=== PATIENT | male | born 1965 | race African-American/Black ===

== ENCOUNTER 2018-08-20 19:29 | Emergency (ER) | payer MEDICAID, OTHER ==
[~2018-08-20] VITALS: Ht 177.8 cm; Wt 69.9 kg
[~2018-08-20 19:29] MED LIST: ASPI81CH43; ENAL20TA70; INSLANTI; METF-370; NIFE60TA53; SIMV-13
[2018-08-20] MEDS ORDERED: cloNIDine HCL 0.1 MG TAB PO ONE (19:45)
[2018-08-20 21:32] LABS: Basophils # (auto) 0 uL; Basophils % (auto) 0.4 % (0.0-2.0); Eosinophils # (auto) 0.1 uL; Eosinophils % (auto) 1.8 % (0.0-7.0); Hematocrit 39.6 % (41.0-53.0); Hemoglobin 13.2 g/dL (13.5-17.5); Lymphocytes # (auto) 2.3 uL; Lymphocytes % (auto) 39.8 % (10.0-50.0); Mean Corpuscular Hemoglobin 28.2 pg (28.0-32.0); Mean Corpuscular Hgb Conc. 33.2 g/dL (32.0-36.0); Mean Corpuscular Volume 84.7 fL (80.0-100.0); Monocytes # (auto) 0.7 uL; Monocytes % (auto) 11.2 % (0.0-12.0); Neutrophils # (auto) 2.8 uL; Neutrophils % (auto) 46.8 % (37.0-80.0); Nucleated Red Blood Cells % 0.3 %; Platelet Count (auto) 252 10^3/uL (140-450); Red Blood Cells 4.68 10^6/uL (4.5-5.90); Red Cell Distribution Width 14.8 % (11.8-14.3); White Blood Cell 5.9 10^3/uL (4.4-10.8)
[2018-08-20 21:46] LABS: INR 1.03 (0.9-1.15); Partial Thromboplastin Time 25.9 sec (23.78-33.04)
[2018-08-20 21:47] LABS: Albumin 3.4 g/dL (3.4-5.0); Anion Gap 4 (5-15); Blood Urea Nitrogen 10 mg/dL (7-18); Calcium 8.8 mg/dL (8.5-10.1); Carbon Dioxide 30 mmol/L (21-32); Chloride 106 mmol/L (98-107); Glucose 136 mg/dL (74-106); Magnesium 1.9 mg/dL (1.6-2.6); Potassium 3.9 mmol/L (3.5-5.1); Sodium 140 mmol/L (136-145)
[2018-08-20 21:50] LABS: Alanine Aminotransferase 30 U/L (16-61); Alkaline Phosphatase 94 U/L (45-117); Aspartate Aminotransferase 24 U/L (15-37); BUN/Creatinine Ratio 8.5; Bilirubin, Total 0.2 mg/dL (0.2-1.0); GFR African American 84 mL/min; GFR Non-African American 69 mL/min; Total Protein 7.3 g/dL (6.4-8.2)
[2018-08-20 22:41] VITALS: BP 166/96
== END 2018-08-20 22:42 | disposition home or self-care (01) ==
LOC: ER 19:35
DX: I10 Essential (primary) hypertension (principal); R42 Dizziness and giddiness; E11.9 Type 2 diabetes mellitus without complications; E78.5 Hyperlipidemia, unspecified; R06.02 Shortness of breath
CPT/HCPCS: 36415; 70450; 71046; 80053; 83735; 83880; 84484; 85025; 85610; 85730; 93005

== ENCOUNTER 2018-09-04 07:11 | Emergency (ER) | payer MEDICAID ==
[~2018-09-04] VITALS: Ht 177.8 cm; Wt 111.1 kg
[2018-09-04 07:15] VITALS: BP 131/75
[2018-09-04 08:51] LABS: Basophils # (auto) 0 uL; Basophils % (auto) 0.6 % (0.0-2.0); Eosinophils # (auto) 0.1 uL; Hematocrit 41.3 % (41.0-53.0); Hemoglobin 13.7 g/dL (13.5-17.5); Lymphocytes # (auto) 1.5 uL; Lymphocytes % (auto) 23.4 % (10.0-50.0); Mean Corpuscular Hgb Conc. 33.1 g/dL (32.0-36.0); Mean Corpuscular Volume 84.6 fL (80.0-100.0); Monocytes # (auto) 0.5 uL; Monocytes % (auto) 7.8 % (0.0-12.0); Neutrophils # (auto) 4.4 uL; Neutrophils % (auto) 67.2 % (37.0-80.0); Platelet Count (auto) 281 10^3/uL (140-450); Red Blood Cells 4.88 10^6/uL (4.5-5.90); Red Cell Distribution Width 14.5 % (11.8-14.3); White Blood Cell 6.5 10^3/uL (4.4-10.8)
[2018-09-04 09:15] LABS: Alanine Aminotransferase 49 U/L (16-61); Albumin 3.6 g/dL (3.4-5.0); Anion Gap 10 (5-15); Aspartate Aminotransferase 29 U/L (15-37); BUN/Creatinine Ratio 12.9; Blood Urea Nitrogen 19 mg/dL (7-18); Calcium 8.7 mg/dL (8.5-10.1); Carbon Dioxide 26 mmol/L (21-32); Chloride 103 mmol/L (98-107); GFR African American 64 mL/min; GFR Non-African American 53 mL/min; Glucose 222 mg/dL (74-106); Magnesium 2.1 mg/dL (1.6-2.6); Potassium 3.4 mmol/L (3.5-5.1); Sodium 139 mmol/L (136-145)
[2018-09-04 09:20] LABS: Alkaline Phosphatase 87 U/L (45-117); Bilirubin, Total 0.3 mg/dL (0.2-1.0); Total Protein 7.8 g/dL (6.4-8.2)
== END 2018-09-04 14:54 | disposition home or self-care (01) ==
LOC: ER 07:11
DX: R42 Dizziness and giddiness (principal); E11.9 Type 2 diabetes mellitus without complications; I10 Essential (primary) hypertension; E78.5 Hyperlipidemia, unspecified
CPT/HCPCS: 36415; 80053; 82962; 83735; 84484; 85025; 93005

== ENCOUNTER 2020-05-12 02:30 | Inpatient (IN) | payer MEDICAID ==
[~2020-05-12] VITALS: Ht 177.8 cm; Wt 108.9 kg
[~2020-05-12 02:30] MED LIST changes: -ENAL20TA70; +ENAL20TA8
[2020-05-12] MEDS ORDERED: ASPirin 81 mg TAB PO ONE (03:15)
[2020-05-12 03:50] LABS: Basophils # (auto) 0 10 ^3/uL (0-0.2); Basophils % (auto) 0.6 % (0.0-2.0); Eosinophils # (auto) 0.1 10 ^3/uL (0-0.8); Eosinophils % (auto) 1.4 % (0.0-7.0); Hematocrit 41.9 % (41.0-53.0); Hemoglobin 13.6 g/dL (13.5-17.5); Lymphocytes # (auto) 1.7 10 ^3/uL (0.4-5.4); Lymphocytes % (auto) 23.9 % (10.0-50.0); Mean Corpuscular Hemoglobin 27.5 pg (28.0-32.0); Mean Corpuscular Hgb Conc. 32.5 g/dL (32.0-36.0); Mean Corpuscular Volume 84.6 fL (80.0-100.0); Monocytes # (auto) 0.6 10 ^3/uL (0-1.3); Monocytes % (auto) 7.9 % (0.0-12.0); Neutrophils # (auto) 4.9 10 ^3/uL (1.6-8.6); Neutrophils % (auto) 66.2 % (37.0-80.0); Nucleated Red Blood Cells % 0.1 %; Platelet Count (auto) 290 10^3/uL (140-450); Red Blood Cells 4.95 10^6/uL (4.5-5.90); Red Cell Distribution Width 14.7 % (11.8-14.3); White Blood Cell 7.3 10^3/uL (4.4-10.8)
[2020-05-12 04:09] LABS: INR 1.05 (0.9-1.15); Partial Thromboplastin Time 27.1 sec (23.0-31.2)
[2020-05-12 04:11] LABS: Chloride 108 mmol/L (98-107); Potassium 3.3 mmol/L (3.5-5.1); Sodium 139 mmol/L (136-145)
[2020-05-12 04:11] LABS: Urine Bacteria FEW /hpf (None Seen); Urine Blood Negative /uL (Negative); Urine Specific Gravity 1.015 (1.001-1.035); Urine WBC 1 /hpf (0 - 3)
[2020-05-12 04:22] LABS: Alanine Aminotransferase 27 U/L (16-61); Albumin 3.8 g/dL (3.4-5.0); Alkaline Phosphatase 87 U/L (45-117); Anion Gap 10 (5-15); Aspartate Aminotransferase 21 U/L (15-37); BUN/Creatinine Ratio 10.5; Bilirubin, Total 0.3 mg/dL (0.2-1.0); Blood Urea Nitrogen 13 mg/dL (7-18); Carbon Dioxide 21 mmol/L (21-32); GFR African American 78 mL/min; GFR Non-African American 64 mL/min; Glucose 186 mg/dL (74-106); Magnesium 2.4 mg/dL (1.6-2.6); Total Protein 7.8 g/dL (6.4-8.2)
[2020-05-12] MEDS ORDERED: ONDANSETRON HCL 4 MG/2 ML VIAL IV PRN (05:45)
[2020-05-12] MEDS ORDERED: TEMAZEPAM 15 MG CAP PO PRN (05:45)
[2020-05-12] MEDS ORDERED: DEXTROSE (50%) 50ML SYRG IV PRN (05:45)
[2020-05-12] MEDS ORDERED: ACETAMINOPHEN 325 MG TAB PO PRN (05:45)
[2020-05-12] MEDS ORDERED: MORPHINE SULF INJ 2 MG/ML SYRINGE 1ML IV PRN (05:45)
[2020-05-12] MEDS ORDERED: NITROGLYCERIN 0.4 MG SL TAB SL PRN (05:45)
[2020-05-12] MEDS: ACCU-CHEK COMFORT CURVE STRIP VI SCH ×4 (07:33→22:16)
[2020-05-12] MEDS: InsuLIN REG 1unit/0.01ml Soln (100units/ml) SC SCH ×4 (07:33→22:00)
[2020-05-12] MEDS: FAMOTIDINE 20 MG TAB PO SCH ×2 (09:48→22:16)
[2020-05-12] MEDS: NIFEdipine ER 30 MG TAB PO SCH (09:48)
[2020-05-12] MEDS: ENALAPRIL MALEATE 10 MG TAB PO SCH (09:49)
[2020-05-12] MEDS: ENOXAPARIN SOD 40 MG/0.4 ML SYRINGE SC SCH (09:49)
[2020-05-12] MEDS ORDERED: ASPirin 81 mg TAB PO SCH (10:00)
[2020-05-12] MEDS ORDERED: POTASSIUM CHL 20 Meq TABLET PO ONE (11:15)
[2020-05-12 11:42] LABS: Alcohol, Urine < 3.0 mg/dL (0-10); Amphetamine Screen, Urine NEGATIVE (NEGATIVE); Barbiturate Scree,Urine NEGATIVE (NEGATIVE); Benzodiazephine Screen, Urine NEGATIVE (NEGATIVE); Cannabinoid Screen, Urine NEGATIVE (NEGATIVE); Cocaine Screen, Urine NEGATIVE (NEGATIVE); Opiate Scree,Urine NEGATIVE (NEGATIVE); Phencyclidine Screen, Urine NEGATIVE (NEGATIVE)
[2020-05-12 18:05] VITALS: BP 147/93
[2020-05-12] MEDS ORDERED: CANA300T OR (18:44)
[2020-05-12] MEDS ORDERED: NIFE90TA49 PO (18:44)
[2020-05-12] MEDS ORDERED: ROSU40TA PO (18:44)
[2020-05-12] MEDS ORDERED: SEMA2INJ SC (18:44)
[2020-05-12] MEDS ORDERED: ERGO50003 PO (18:44)
[2020-05-12 22:00] VITALS: BP 147/94
[2020-05-12] MEDS ORDERED: ATORVASTATIN 20 MG TAB PO SCH (22:00)
[2020-05-13 05:00] VITALS: BP 150/79
[2020-05-13 06:14] LABS: Basophils # (auto) 0 10 ^3/uL (0-0.2); Basophils % (auto) 0.5 % (0.0-2.0); Eosinophils # (auto) 0.1 10 ^3/uL (0-0.8); Eosinophils % (auto) 2.3 % (0.0-7.0); Hematocrit 40.3 % (41.0-53.0); Hemoglobin 13.4 g/dL (13.5-17.5); Mean Corpuscular Hemoglobin 28.2 pg (28.0-32.0); Mean Corpuscular Hgb Conc. 33.2 g/dL (32.0-36.0); Monocytes # (auto) 0.6 10 ^3/uL (0-1.3); Monocytes % (auto) 10.3 % (0.0-12.0); Neutrophils # (auto) 2.9 10 ^3/uL (1.6-8.6); Neutrophils % (auto) 50.9 % (37.0-80.0); Nucleated Red Blood Cells % 0.1 %; Platelet Count (auto) 259 10^3/uL (140-450); Red Blood Cells 4.74 10^6/uL (4.5-5.90); Red Cell Distribution Width 14.5 % (11.8-14.3); White Blood Cell 5.6 10^3/uL (4.4-10.8)
[2020-05-13 06:46] LABS: Cholesterol 144 mg/dL (< 200); Triglycerides 104 mg/dL (< 150)
[2020-05-13 06:47] LABS: Calcium 8.7 mg/dL (8.5-10.1); Potassium 4.2 mmol/L (3.5-5.1)
[2020-05-13 06:48] LABS: HDL Cholesterol 37 mg/dL (40-59); LDL Cholesterol 88 mg/dL (< 100)
[2020-05-13 06:50] LABS: BUN/Creatinine Ratio 12.4
[2020-05-13] MEDS: InsuLIN REG 1unit/0.01ml Soln (100units/ml) SC SCH ×3 (07:00→16:52)
[2020-05-13] MEDS: ACCU-CHEK COMFORT CURVE STRIP VI SCH ×3 (07:07→16:51)
[2020-05-13 09:00] VITALS: BP 151/91
[2020-05-13] MEDS ORDERED: ASPirin 81 mg TAB PO SCH (10:00)
[2020-05-13] MEDS ORDERED: ADENOSINE 91 MG in GIVE UN-DILUTED 0 ML IV STA (10:27)
[2020-05-13] MEDS: ENOXAPARIN SOD 40 MG/0.4 ML SYRINGE SC SCH (11:12)
[2020-05-13] MEDS: FAMOTIDINE 20 MG TAB PO SCH (11:12)
[2020-05-13] MEDS: NIFEdipine ER 30 MG TAB PO SCH (11:13)
[2020-05-13] MEDS: ENALAPRIL MALEATE 10 MG TAB PO SCH (11:14)
[2020-05-13 13:00] VITALS: BP 150/90
[2020-05-13] MEDS ORDERED: NIFEdipine ER 30 MG TAB PO ONE (14:00)
[2020-05-13 16:08] VITALS: BP 137/85
[2020-05-13 17:03] VITALS: BP 151/91
[2020-05-14] MEDS ORDERED: NIFEdipine ER 30 MG TAB PO SCH (10:00)
[2020-05-14] MEDS ORDERED: ENALAPRIL MALEATE 10 MG TAB PO SCH (10:00)
== END 2020-05-13 18:10 | disposition home or self-care (01) | DRG 243 ==
LOC: ER 02:33 → TELE 02:34 → TELE-WESTW 17:39
PROVIDERS: ADMIT Nurse Practitioner; ATTEND Internal Medicine
DX: K21.9 Gastro-esophageal reflux disease without esophagitis (principal); E87.6 Hypokalemia; E11.9 Type 2 diabetes mellitus without complications; I10 Essential (primary) hypertension; R07.89 Other chest pain; E66.01 Morbid (severe) obesity due to excess calories; I70.0 Atherosclerosis of aorta; E78.5 Hyperlipidemia, unspecified; Z82.49 Family history of ischemic heart disease and other diseases of the circulatory system; Z68.34 Body mass index [BMI] 34.0-34.9, adult; Z79.4 Long term (current) use of insulin
CPT/HCPCS: 36415; 71045; 78452; 80048; 80053; 80061; 80307; 81001; 82962; 83036; 83735; 83880; 84443; 84484; 85025; 85379; 85610; 85730; 93005; 93017; 93306; G0378; J0153

== ENCOUNTER 2020-05-25 05:04 | Emergency (ER) | payer MEDICAID ==
[~2020-05-25] VITALS: Ht 177.8 cm; Wt 108.4 kg
[~2020-05-25 05:04] MED LIST changes: +CANA300T OR; +ERGO50003 PO; -INSLANTI; -NIFE60TA53; +NIFE90TA49 PO; +ROSU40TA PO; +SEMA2INJ SC; -SIMV-13
[2020-05-25 05:56] LABS: Basophils # (auto) 0 10 ^3/uL (0-0.2); Basophils % (auto) 0.5 % (0.0-2.0); Eosinophils # (auto) 0.1 10 ^3/uL (0-0.8); Eosinophils % (auto) 1.6 % (0.0-7.0); Hematocrit 43.1 % (41.0-53.0); Lymphocytes # (auto) 1.7 10 ^3/uL (0.4-5.4); Lymphocytes % (auto) 23.7 % (10.0-50.0); Mean Corpuscular Hemoglobin 27.6 pg (28.0-32.0); Mean Corpuscular Hgb Conc. 32.5 g/dL (32.0-36.0); Mean Corpuscular Volume 85.2 fL (80.0-100.0); Monocytes # (auto) 0.6 10 ^3/uL (0-1.3); Monocytes % (auto) 8.8 % (0.0-12.0); Neutrophils # (auto) 4.6 10 ^3/uL (1.6-8.6); Neutrophils % (auto) 65.4 % (37.0-80.0); Platelet Count (auto) 269 10^3/uL (140-450); Red Blood Cells 5.06 10^6/uL (4.5-5.90); Red Cell Distribution Width 14.5 % (11.8-14.3)
[2020-05-25 06:09] LABS: INR 1.02 (0.9-1.15); Partial Thromboplastin Time 25.1 sec (23.0-31.2)
[2020-05-25 06:18] LABS: Urine Bacteria NONE SEEN /hpf (None Seen); Urine Blood Negative /uL (Negative); Urine Specific Gravity 1.005 (1.001-1.035); Urine WBC 1 /hpf (0 - 3)
[2020-05-25 06:19] LABS: Albumin 3.5 g/dL (3.4-5.0); Anion Gap 8 (5-15); Blood Urea Nitrogen 12 mg/dL (7-18); Calcium 8.7 mg/dL (8.5-10.1); Carbon Dioxide 22 mmol/L (21-32); Chloride 111 mmol/L (98-107); Glucose 174 mg/dL (74-106); Magnesium 2.2 mg/dL (1.6-2.6); Potassium 3.6 mmol/L (3.5-5.1); Sodium 141 mmol/L (136-145)
[2020-05-25 06:24] LABS: Alanine Aminotransferase 31 U/L (16-61); Alkaline Phosphatase 76 U/L (45-117); Aspartate Aminotransferase 23 U/L (15-37); BUN/Creatinine Ratio 12.2; Bilirubin, Total 0.3 mg/dL (0.2-1.0); GFR African American 102 mL/min; GFR Non-African American 84 mL/min; Total Protein 7.5 g/dL (6.4-8.2)
[2020-05-25 07:36] VITALS: BP 135/81
== END 2020-05-25 08:01 | disposition home or self-care (01) ==
LOC: ER 05:05
DX: R07.89 Other chest pain (principal); E11.65 Type 2 diabetes mellitus with hyperglycemia; I10 Essential (primary) hypertension; E78.5 Hyperlipidemia, unspecified; Z79.899 Other long term (current) drug therapy; Z79.82 Long term (current) use of aspirin
CPT/HCPCS: 36415; 71045; 80053; 81001; 83735; 83880; 84443; 84484; 85025; 85610; 85730; 93005

== ENCOUNTER 2020-05-31 18:06 | Emergency (ER) | payer MEDICAID | END 2020-05-31 18:55 | disposition left against medical advice (07) | LOC: ER 18:08 | DX: I10 Essential (primary) hypertension (principal); Z53.21 Procedure and treatment not carried out due to patient leaving prior to being seen by health care provider ==

== ENCOUNTER 2020-10-31 22:02 | Inpatient (IN) | payer MEDICAID ==
[~2020-10-31] VITALS: Ht 182.9 cm; Wt 116.4 kg
[2020-10-31 22:43] LABS: Urine Bacteria NONE SEEN /hpf (None Seen); Urine Blood 1+ /uL (Negative); Urine Hyaline Cast MOD /lpf (0 - 2); Urine Mucus FEW (None Seen); Urine Specific Gravity 1.025 (1.001-1.035); Urine WBC 7 /hpf (0 - 3)
[2020-10-31 22:58] LABS: Basophils # (auto) 0 10 ^3/uL (0-0.2); Basophils % (auto) 0.3 % (0.0-2.0); Eosinophils # (auto) 0 10 ^3/uL (0-0.8); Eosinophils % (auto) 0.3 % (0.0-7.0); Hematocrit 39.4 % (41.0-53.0); Hemoglobin 13.1 g/dL (13.5-17.5); Lymphocytes # (auto) 0.8 10 ^3/uL (0.4-5.4); Lymphocytes % (auto) 5.1 % (10.0-50.0); Mean Corpuscular Hemoglobin 27.7 pg (28.0-32.0); Mean Corpuscular Hgb Conc. 33.4 g/dL (32.0-36.0); Mean Corpuscular Volume 82.9 fL (80.0-100.0); Monocytes # (auto) 1.2 10 ^3/uL (0-1.3); Monocytes % (auto) 7.7 % (0.0-12.0); Neutrophils # (auto) 13.5 10 ^3/uL (1.6-8.6); Neutrophils % (auto) 86.6 % (37.0-80.0); Nucleated Red Blood Cells % 0.2 %; Platelet Count (auto) 315 10^3/uL (140-450); Red Blood Cells 4.75 10^6/uL (4.5-5.90); Red Cell Distribution Width 14.6 % (11.8-14.3); White Blood Cell 15.6 10^3/uL (4.4-10.8)
[2020-10-31 23:13] LABS: INR 1.18 (0.9-1.15); Partial Thromboplastin Time 29.2 sec (23.0-31.2)
[2020-10-31 23:14] LABS: Albumin 2.9 g/dL (3.4-5.0); Anion Gap 9 (5-15); Blood Urea Nitrogen 43 mg/dL (7-18); Calcium 8.8 mg/dL (8.5-10.1); Carbon Dioxide 24 mmol/L (21-32); Chloride 98 mmol/L (98-107); Glucose 130 mg/dL (74-106); Potassium 3.6 mmol/L (3.5-5.1); Sodium 131 mmol/L (136-145)
[2020-10-31 23:21] LABS: Alanine Aminotransferase 55 U/L (16-61); Alkaline Phosphatase 97 U/L (45-117); Aspartate Aminotransferase 49 U/L (15-37); BUN/Creatinine Ratio 20.4; Bilirubin, Total 0.9 mg/dL (0.2-1.0); GFR African American 42 mL/min; GFR Non-African American 35 mL/min
[2020-11-01] VITALS (8 sets, daily range): BP systolic 113–150; BP diastolic 65–82
[2020-11-01] MEDS ORDERED: cefTRIAXone 1GM/50ML D5W 50 ML IV ONE ×4 (00:15→11:15)
[2020-11-01] MEDS ORDERED: fentaNYL CITRATE 100 MCG/2 ML VL IV ONE (00:15)
[2020-11-01] MEDS ORDERED: DEXTROSE (50%) 50ML SYRG IV PRN (06:00)
[2020-11-01] MEDS ORDERED: NITROGLYCERIN 0.4 MG SL TAB SL PRN (06:00)
[2020-11-01] MEDS ORDERED: MORPHINE SULF INJ 2 MG/ML SYRINGE 1ML IV PRN (06:00)
[2020-11-01] MEDS ORDERED: ONDANSETRON HCL 4 MG/2 ML VIAL IV PRN ×2 (06:00→11:15)
[2020-11-01] MEDS ORDERED: LACTATED RINGER'S 1,000 ML IV ONE (06:00)
[2020-11-01] MEDS: InsuLIN REG 1unit/0.01ml Soln (100units/ml) SC SCH ×4 (06:10→23:37)
[2020-11-01] MEDS: ACCU-CHEK COMFORT CURVE STRIP VI SCH ×4 (06:10→23:37)
[2020-11-01] MEDS: metroNIDAZOLE 500MG/100ML 100 ML IV SCH ×3 (06:12→22:16)
[2020-11-01] MEDS: LACTATED RINGER'S 1,000 ML IV SCH ×3 (07:50→22:16)
[2020-11-01] MEDS: BUPIVACAINE 0.25% INJ 50ML VIAL ONE ×2 (08:01→09:17)
[2020-11-01] MEDS ORDERED: SUCCINYLCHOLINE CHLORIDE 20 MG/ML 10ML VIAL IV ONE (08:22)
[2020-11-01] MEDS ORDERED: ONDANSETRON HCL 4 MG/2 ML VIAL ONE (08:24)
[2020-11-01] MEDS ORDERED: LIDOCAINE 2% (LOCAL ANESTH.) PF 5ml SDV ONE (08:24)
[2020-11-01] MEDS ORDERED: MIDAZOLAM HCL 1MG/1ML-2 ML VIAL ONE (08:24)
[2020-11-01] MEDS ORDERED: PROPOFOL 10 MG/ML 20 ML IV ONE (08:24)
[2020-11-01] MEDS ORDERED: fentaNYL CITRATE 5 ML ONE (08:24)
[2020-11-01] MEDS ORDERED: metroNIDAZOLE 500MG/100ML 100 ML IV ONE (10:06)
[2020-11-01 10:32] LABS: Protein, Urine 93.1 mg/dL (0.0-11.9)
[2020-11-01] MEDS ORDERED: HYDROmorphone HCL 2 MG/ML VL ONE (10:48)
[2020-11-01] MEDS ORDERED: NEOSTIGMINE 1 MG/ML INJ (10mg/10ML VIAL) ONE (10:50)
[2020-11-01] MEDS ORDERED: GLYCOPYRROLATE 0.2 MG/ML 1ML VIAL ONE (10:50)
[2020-11-01] MEDS ORDERED: HYDROmorphone HCL 2 MG/ML VL IV PRN ×2 (11:15)
[2020-11-01] MEDS: MORPHINE SULF INJ 2 MG/ML SYRINGE 1ML IV PRN ×2 (16:30→20:30)
[2020-11-02] VITALS (14 sets, daily range): BP systolic 122–156; BP diastolic 66–85
[2020-11-02] MEDS: MORPHINE SULF INJ 2 MG/ML SYRINGE 1ML IV PRN ×5 (01:07→17:15)
[2020-11-02] MEDS: metroNIDAZOLE 500MG/100ML 100 ML IV SCH ×3 (05:37→21:50)
[2020-11-02] MEDS: LACTATED RINGER'S 1,000 ML IV SCH ×3 (05:38→21:50)
[2020-11-02] MEDS: ACCU-CHEK COMFORT CURVE STRIP VI SCH ×4 (06:05→23:49)
[2020-11-02] MEDS: InsuLIN REG 1unit/0.01ml Soln (100units/ml) SC SCH ×4 (06:05→23:49)
[2020-11-02] MEDS ORDERED: PANTOPRAZOLE 40 MG/10 ML VIAL INJ IV ONE (09:45)
[2020-11-02] MEDS ORDERED: METOPROLOL TARTRATE 50 MG TAB PO SCH (10:00)
[2020-11-02] MEDS: NIFEdipine ER 30 MG TAB PO SCH (10:58)
[2020-11-02] MEDS: cefTRIAXone 1GM/50ML D5W 50 ML IV SCH (10:58)
[2020-11-02] MEDS: ENALAPRIL MALEATE 10 MG TAB PO SCH (10:59)
[2020-11-02 11:09] LABS: BUN/Creatinine Ratio 16.5; Calcium 8.2 mg/dL (8.5-10.1); Potassium 3.8 mmol/L (3.5-5.1)
[2020-11-02] MEDS: ATORVASTATIN 20 MG TAB PO SCH (21:50)
[2020-11-03] VITALS (7 sets, daily range): BP systolic 115–159; BP diastolic 71–84
[2020-11-03] MEDS: MORPHINE SULF INJ 2 MG/ML SYRINGE 1ML IV PRN ×3 (01:10→15:54)
[2020-11-03] MEDS: InsuLIN REG 1unit/0.01ml Soln (100units/ml) SC SCH ×3 (06:00→18:35)
[2020-11-03] MEDS: ACCU-CHEK COMFORT CURVE STRIP VI SCH ×3 (06:07→18:35)
[2020-11-03] MEDS: LACTATED RINGER'S 1,000 ML IV SCH ×3 (06:07→16:02)
[2020-11-03] MEDS: metroNIDAZOLE 500MG/100ML 100 ML IV SCH ×2 (06:07→13:33)
[2020-11-03 07:43] LABS: Basophils # (auto) 0.1 10 ^3/uL (0-0.2); Basophils % (auto) 0.7 % (0.0-2.0); Eosinophils # (auto) 0.5 10 ^3/uL (0-0.8); Eosinophils % (auto) 3.8 % (0.0-7.0); Hematocrit 36.1 % (41.0-53.0); Hemoglobin 11.9 g/dL (13.5-17.5); Lymphocytes # (auto) 0.9 10 ^3/uL (0.4-5.4); Lymphocytes % (auto) 6.7 % (10.0-50.0); Mean Corpuscular Hemoglobin 27.3 pg (28.0-32.0); Mean Corpuscular Hgb Conc. 32.9 g/dL (32.0-36.0); Mean Corpuscular Volume 82.8 fL (80.0-100.0); Monocytes # (auto) 0.8 10 ^3/uL (0-1.3); Monocytes % (auto) 5.8 % (0.0-12.0); Neutrophils # (auto) 10.9 10 ^3/uL (1.6-8.6); Platelet Count (auto) 297 10^3/uL (140-450); Red Blood Cells 4.36 10^6/uL (4.5-5.90); Red Cell Distribution Width 14.9 % (11.8-14.3); White Blood Cell 13.1 10^3/uL (4.4-10.8)
[2020-11-03 07:56] LABS: Potassium 3.8 mmol/L (3.5-5.1)
[2020-11-03 08:04] LABS: Albumin 1.8 g/dL (3.4-5.0); BUN/Creatinine Ratio 17.8; Calcium 8.3 mg/dL (8.5-10.1)
[2020-11-03 08:06] LABS: Bilirubin, Total 0.8 mg/dL (0.2-1.0); Total Protein 6.1 g/dL (6.4-8.2)
[2020-11-03] MEDS: cefTRIAXone 1GM/50ML D5W 50 ML IV SCH (08:26)
[2020-11-03] MEDS: NIFEdipine ER 30 MG TAB PO SCH (10:00)
[2020-11-03] MEDS: ENALAPRIL MALEATE 10 MG TAB PO SCH (10:00)
[2020-11-03] MEDS: PANTOPRAZOLE 40 MG/10 ML VIAL INJ IV SCH (10:22)
[2020-11-04] MEDS: LACTATED RINGER'S 1,000 ML IV SCH ×2 (00:11→00:36)
[2020-11-04] MEDS: metroNIDAZOLE 500MG/100ML 100 ML IV SCH ×4 (00:12→22:37)
[2020-11-04] MEDS: ATORVASTATIN 20 MG TAB PO SCH ×2 (00:12→22:37)
[2020-11-04] MEDS: ACCU-CHEK COMFORT CURVE STRIP VI SCH ×5 (00:13→23:47)
[2020-11-04] MEDS: MORPHINE SULF INJ 2 MG/ML SYRINGE 1ML IV PRN (00:35)
[2020-11-04 05:00] VITALS: BP 152/86
[2020-11-04] MEDS: InsuLIN REG 1unit/0.01ml Soln (100units/ml) SC SCH ×5 (06:00→23:53)
[2020-11-04 08:29] VITALS: BP 147/86
[2020-11-04] MEDS: cefTRIAXone 1GM/50ML D5W 50 ML IV SCH (09:43)
[2020-11-04] MEDS: PANTOPRAZOLE 40 MG/10 ML VIAL INJ IV SCH (10:38)
[2020-11-04] MEDS: NIFEdipine ER 30 MG TAB PO SCH (10:39)
[2020-11-04] MEDS: ENALAPRIL MALEATE 10 MG TAB PO SCH (10:40)
[2020-11-04] MEDS ORDERED: LACTATED RINGER'S 1,000 ML IV SCH (12:45)
[2020-11-04 13:00] VITALS: BP 130/81
[2020-11-04 17:24] VITALS: BP 118/67
[2020-11-04 22:00] VITALS: BP 119/65
[2020-11-05 05:06] VITALS: BP 127/69
[2020-11-05] MEDS: metroNIDAZOLE 500MG/100ML 100 ML IV SCH ×2 (06:16→14:00)
[2020-11-05] MEDS: ACCU-CHEK COMFORT CURVE STRIP VI SCH ×3 (06:16→18:02)
[2020-11-05] MEDS: InsuLIN REG 1unit/0.01ml Soln (100units/ml) SC SCH ×3 (06:17→18:25)
[2020-11-05 06:40] LABS: Hematocrit 35.4 % (41.0-53.0); Mean Corpuscular Hemoglobin 27.8 pg (28.0-32.0); Mean Corpuscular Hgb Conc. 33.7 g/dL (32.0-36.0); Mean Corpuscular Volume 82.5 fL (80.0-100.0); Platelet Count (auto) 390 10^3/uL (140-450); Red Cell Distribution Width 15.5 % (11.8-14.3); White Blood Cell 10.8 10^3/uL (4.4-10.8)
[2020-11-05 06:54] LABS: Basophils % (manual) 0 (0.0-2.0); Metamyelocytes % 0; Myelocytes % 0; Promyelocytes % 0; Reactive Lymphocytes 0
[2020-11-05 07:45] LABS: Band Neutrophils % (manual) 19; Blast Cells 1; Eosinophils % (manual) 3 (0-7); Lymphocytes % (manual) 13 (10.0-50.0); Monocytes % (manual) 5 (0-12)
[2020-11-05 09:00] VITALS: BP 123/67
[2020-11-05] MEDS: PANTOPRAZOLE 40 MG/10 ML VIAL INJ IV SCH (10:01)
[2020-11-05] MEDS: cefTRIAXone 1GM/50ML D5W 50 ML IV SCH (10:01)
[2020-11-05] MEDS: NIFEdipine ER 30 MG TAB PO SCH (10:02)
[2020-11-05] MEDS: ENALAPRIL MALEATE 10 MG TAB PO SCH (10:03)
[2020-11-05 12:54] VITALS: BP 116/77
[2020-11-05] MEDS: MORPHINE SULF INJ 2 MG/ML SYRINGE 1ML IV PRN (12:57)
[2020-11-05 17:00] VITALS: BP 113/68
[2020-11-05 18:37] VITALS: BP 123/67
== END 2020-11-05 20:10 | disposition home or self-care (01) | DRG 710 ==
LOC: ER 22:02 → OVERFLOW 11-01 05:58 → DOU IN ICU 11-01 15:19 → EAST 11-02 18:18
PROVIDERS: ADMIT Nurse Practitioner Acute Care; ATTEND Family Medicine
PROC: 0DNW4ZZ Release Peritoneum, Percutaneous Endoscopic Approach (ICD-10-PCS; 2020-11-01)
PROC: 0WQF0ZZ Repair Abdominal Wall, Open Approach (ICD-10-PCS; 2020-11-01)
PROC: 0W9G0ZZ Drainage of Peritoneal Cavity, Open Approach (ICD-10-PCS; 2020-11-01)
PROC: 0WJG4ZZ Inspection of Peritoneal Cavity, Percutaneous Endoscopic Approach (ICD-10-PCS; 2020-11-01)
PROC: 0DTJ0ZZ Resection of Appendix, Open Approach (ICD-10-PCS; principal; 2020-11-01 08:55)
DX: A41.9 Sepsis, unspecified organism (principal); N17.0 Acute kidney failure with tubular necrosis; K35.33 Acute appendicitis with perforation, localized peritonitis, and gangrene, with abscess; K56.7 Ileus, unspecified; E11.22 Type 2 diabetes mellitus with diabetic chronic kidney disease; E88.09 Other disorders of plasma-protein metabolism, not elsewhere classified; R80.9 Proteinuria, unspecified; K66.0 Peritoneal adhesions (postprocedural) (postinfection); K43.9 Ventral hernia without obstruction or gangrene; E66.9 Obesity, unspecified; Z68.31 Body mass index [BMI] 31.0-31.9, adult; I12.9 Hypertensive chronic kidney disease with stage 1 through stage 4 chronic kidney disease, or unspecified chronic kidney disease; Z20.822 Contact with and (suspected) exposure to COVID-19; E78.5 Hyperlipidemia, unspecified; E78.00 Pure hypercholesterolemia, unspecified; K42.9 Umbilical hernia without obstruction or gangrene; K43.2 Incisional hernia without obstruction or gangrene; Z79.84 Long term (current) use of oral hypoglycemic drugs; Z82.49 Family history of ischemic heart disease and other diseases of the circulatory system; Z79.82 Long term (current) use of aspirin; N18.32 Chronic kidney disease, stage 3b
CPT/HCPCS: 36415; 71045; 74176; 80048; 80053; 81001; 82570; 82962; 83036; 83605; 83690; 83880; 84156; 84484; 85007; 85025; 85027; 85610; 85730; 86850; 86900; 86901; 87040; 87070; 87075; 87076; 87077; 87081; 87205; 87426; 93005; 96361; 96365; 96366; 96375; 97110; 97116; 97530; C9113; G0378; J0330; J0696; J1815; J2001; J2250; J2405; J2704; J3490

== ENCOUNTER 2020-12-31 11:44 | Emergency (ER) | payer MEDICAID ==
[~2020-12-31] VITALS: Ht 177.8 cm; Wt 102.5 kg
[2020-12-31 11:51] VITALS: BP 142/79
== END 2020-12-31 12:42 | disposition left against medical advice (07) ==
LOC: ER 11:44
DX: F41.8 Other specified anxiety disorders (principal); I10 Essential (primary) hypertension; E11.9 Type 2 diabetes mellitus without complications; E78.5 Hyperlipidemia, unspecified; Z79.82 Long term (current) use of aspirin; Z79.899 Other long term (current) drug therapy

== ENCOUNTER 2022-02-04 18:08 | Emergency (ER) | payer MEDICAID ==
[~2022-02-04] VITALS: Ht 177.8 cm; Wt 112.0 kg
[2022-02-04 19:15] VITALS: BP 147/91
[2022-02-04 20:24] LABS: Basophils # (auto) 0.1 10 ^3/uL (0-0.2); Basophils % (auto) 0.9 % (0.0-2.0); Eosinophils # (auto) 0.2 10 ^3/uL (0-0.8); Eosinophils % (auto) 2.5 % (0.0-7.0); Hematocrit 40.9 % (41.0-53.0); Hemoglobin 13.3 g/dL (13.5-17.5); Lymphocytes # (auto) 2.5 10 ^3/uL (0.4-5.4); Lymphocytes % (auto) 35.6 % (10.0-50.0); Mean Corpuscular Hemoglobin 27.3 pg (28.0-32.0); Mean Corpuscular Hgb Conc. 32.6 g/dL (32.0-36.0); Mean Corpuscular Volume 83.8 fL (80.0-100.0); Monocytes # (auto) 0.6 10 ^3/uL (0-1.3); Monocytes % (auto) 8.5 % (0.0-12.0); Neutrophils # (auto) 3.7 10 ^3/uL (1.6-8.6); Neutrophils % (auto) 52.5 % (37.0-80.0); Red Blood Cells 4.88 10^6/uL (4.5-5.90); Red Cell Distribution Width 14.7 % (11.8-14.3); White Blood Cell 7.1 10^3/uL (4.4-10.8)
[2022-02-04 20:33] LABS: Urine Bacteria FEW /hpf (None Seen); Urine Blood Negative /uL (Negative); Urine Mucus FEW (None Seen); Urine WBC 2 /hpf (0 - 3)
[2022-02-04 20:42] LABS: Albumin 3.9 g/dL (3.4-5.0); Calcium 8.9 mg/dL (8.5-10.1)
[2022-02-04 20:45] LABS: Bilirubin, Total 0.3 mg/dL (0.2-1.0)
== END 2022-02-05 04:46 | disposition left against medical advice (07) ==
LOC: ER 18:08
DX: R10.9 Unspecified abdominal pain (principal); Z53.21 Procedure and treatment not carried out due to patient leaving prior to being seen by health care provider
CPT/HCPCS: 36415; 80053; 81001; 83690; 85025